=== PATIENT | male | born 1995 | race Caucasian/White ===

== ENCOUNTER 2021-12-31 09:30 | Emergency (ER) | payer OTHER ==
[~2021-12-31] VITALS: Ht 165.1 cm; Wt 92.0 kg
[~2021-12-31 09:30] MED LIST: ARIP5TAB37 PO; CLON0.1T PO; LEVE500T8 PO
[2021-12-31 11:51] VITALS: BP 126/84
== END 2021-12-31 12:22 | disposition home or self-care (01) ==
LOC: EMS 09:31
DX: R09.89 Other specified symptoms and signs involving the circulatory and respiratory systems (principal); F84.0 Autistic disorder; R56.9 Unspecified convulsions; Q90.9 Down syndrome, unspecified
CPT/HCPCS: 71045; 99283